=== PATIENT | male | born 1990 | race Caucasian/White ===

== ENCOUNTER 2019-05-11 00:42 | Emergency (ER) | payer SELFPAY ==
[~2019-05-11] VITALS: Ht 172.7 cm; Wt 81.6 kg
[2019-05-11 00:43] VITALS: BP 150/92
--- NOTE | 2019-05-11 00:47 | NUR ---
BIB [facility] FOR PREBOOK FOR [facility]. +[facility]. -[facility]. -LOC. NO DISTRESS NOTED. IN CHAIR FOR MD DE JESUS.
[2019-05-11 01:07] VITALS: BP 150/92
--- NOTE | 2019-05-11 01:07 | NUR ---
PATIENT BIB [facility] POLICE DEPT. PATIENT EXAMINED BY DR. PRADO. PATIENT MEDICALLY CLEARED AND RELEASED IN CUSTODY IN STABLE CONDITION. ORIGINAL PRE-BOOK FORM GIVEN TO [facility] OFFICER .
== END 2019-05-11 01:07 ==
LOC: MED 00:42
DX: Z04.1 Encounter for examination and observation following transport accident (principal)
CPT/HCPCS: 99283